=== PATIENT | female | born 1950 | race African-American/Black ===

== ENCOUNTER → 2019-09-10 11:11 | Outpatient (CLI) | payer OTHER, SELFPAY ==
--- NOTE | ~2019-09-10 | US_ITS ---
EXAMINATION: US thyroid EXAM DATE: 09/10/2019 11:30 INDICATION: Goiter. Left thyroid nodule biopsy 2011. TECHNIQUE: Multiple grayscale and Doppler images of the thyroid were obtained (by a technologist who performed the scan) and subsequently reviewed. Individual nodules and recommendations may be reporte d in accordance with TI-RADS system as designated by the 2017 ACR White Paper TI-RADS committee. Comp herbert is made to prior examination from 01/11/2012. FINDINGS: The right thyroid lobe measures 5.7 x 1.7 x 1.0 cm, the left measuring 6.6 x 3.3 x 2.5 cm, enlarged. There are multiple thyroid nodules identified, largest in the left thyroid lobe measuring 4.1 x 3.5 x 4.2 centimeters, solid (2 points), hypoechoic (2 points), wider than tall, smooth margin, without ec hogenic foci, category TR4 for this nodule. This nodule was previously biopsied in 2011, when it marquita sured 2.4 x 1.7 x 2.5 cm, has increased in size; please correlate with histology from that procedure. The other nodules are subcentimeter in size category TR 4 or lower. IMPRESSION: 1. Increase in size of a previously biopsied left thyroid lobe nodule; correlate with prior histolog y. 2. Multinodular goiter. Reviewed, dictated and finalized at location B. IMPRESSION: 1. Increase in size of a previously biopsied left thyroid lobe nodule; correla te with prior histology. 2. Multinodular goiter.
== END ==
PROVIDERS: PCP Student in an Organized Health Care Education/Training Program; Visit Provider Student in an Organized Health Care Education/Training Program
DX: E04.9 Nontoxic goiter, unspecified (principal)
CPT/HCPCS: 76536

== ENCOUNTER → 2019-10-15 11:06 | Outpatient (CLI) | payer OTHER, SELFPAY ==
--- NOTE | ~2019-10-15 | MM_ITS ---
EXAMINATION: MM screening [facility] w shaun HISTORY: Screening TECHNIQUE: Craniocaudal and mediolateral oblique 3-D tomosynthesis images were obtained and synthetic 2-D images were generated. CAD analysis was submitted and interpreted. COMPARISON: Comparison to multiple prior studies sequentially, with oldest reviewed study dated 04/25. BREAST PARENCHYMAL COMPOSITION: The breasts are heterogenously dense, which may obscure small masses. FINDINGS: There is no evidence of suspicious mass, calcification, or architectural distortion to sugg est malignancy in either breast. There has been no suspicious interval change. IMPRESSION: 1. No mammographic evidence of malignancy. 2. Recommend routine screening mammography in one year. BI-RADS Category 1: Negative Reviewed, dictated and finalized at location A.
== END ==
PROVIDERS: Visit Provider Obstetrics & Gynecology
DX: Z12.31 Encounter for screening mammogram for malignant neoplasm of breast (principal)
CPT/HCPCS: 77063; 77067

== ENCOUNTER → 2019-10-29 11:00 | Outpatient (CLI) | payer OTHER, SELFPAY ==
[2019-10-29 11:17] LABS: Estimated Glomerular Filt Rate 54
== END ==
PROVIDERS: PCP Student in an Organized Health Care Education/Training Program; Visit Provider Student in an Organized Health Care Education/Training Program
DX: R10.31 Right lower quadrant pain (principal); R19.7 Diarrhea, unspecified
CPT/HCPCS: 99199; 36415

== ENCOUNTER → 2019-11-02 09:51 | Outpatient (CLI) | payer OTHER, SELFPAY ==
--- NOTE | ~2019-11-02 | CT_ITS ---
EXAMINATION: CT abdomen pelvis wo con DATE: 11/02/2019 10:05 INDICATION: Right lower quadrant pain, diarrhea, history of irritable bowel syndrome TECHNIQUE: Computed tomography (CT) of the abdomen and pelvis was performed without intravenous contr ast. The dose-length product (DLP) was 535.91 mGy-cm. Automated exposure control and iterative recons truction technique were employed. COMPARISON: None FINDINGS: Minimal dependent atelectasis is present in the lung bases. The heart size is normal. The g allbladder is surgically absent. The liver, spleen, pancreas, and adrenal glands are normal. The kidn eys are unremarkable. There is calcified atherosclerosis of the aorta and many of the other arteries. The appendix is normal. No pathologically enlarged abdominal or pelvic lymph nodes are identified. T here is no free intraperitoneal gas or evidence of bowel obstruction. There is moderate lumbar spondy losis. IMPRESSION: 1. No CT correlate for the patient's symptoms. Reviewed, dictated and finalized at location A.
== END ==
PROVIDERS: PCP Student in an Organized Health Care Education/Training Program; Visit Provider Student in an Organized Health Care Education/Training Program
DX: E04.9 Nontoxic goiter, unspecified (principal)
CPT/HCPCS: 74176

== ENCOUNTER 2019-12-27 06:40 | Outpatient (NON) | payer OTHER, SELFPAY ==
[2019-12-27 17:47] LABS: SARS-CoV-2 RNA PCR Negative
== END 2019-12-27 06:41 ==
PROVIDERS: PCP Student in an Organized Health Care Education/Training Program; Visit Provider Student in an Organized Health Care Education/Training Program
DX: Z20.828 Contact with and (suspected) exposure to other viral communicable diseases (principal); J32.9 Chronic sinusitis, unspecified
CPT/HCPCS: 87635; C9803; U0003

== ENCOUNTER 2020-01-09 12:01 | Emergency (ER) | payer OTHER, SELFPAY ==
--- NOTE | ~2020-01-09 | XR_ITS ---
EXAMINATION: XR chest 1V portable DATE: 01/09/2020 13:22 INDICATION: Weakness. TECHNIQUE: A single frontal view of the chest was obtained. COMPARISON: Chest 2 views 09/08/2011, CT abdomen and pelvis 11/02/2019 FINDINGS: There is no pneumonia, pleural effusion, or pneumothorax. There is left ventricular enlarge ment of the heart. Surgical clips in the right upper quadrant are likely from cholecystectomy. IMPRESSION: 1. Left ventricular enlargement of the heart. Reviewed, dictated and finalized at location A.
[2020-01-09 12:04] VITALS: BP 132/76; PULSE 66; RESP 18; TEMP 36.9; O2SAT 100
[2020-01-09 12:29] LABS: Basophils Percent Auto 0.2 % (0.2-1.2); Eosinophils Percent Auto 0.5 % (0-4.4); Hematocrit 38.7 % (37.0-47.0); Immature Granulocyte Absolute 0.01 K/mm3 (0.00-0.031); Immature Granulocyte Percent A 0.2 % (0-0.5); Immature Platelet Fraction Pct 13.5 % (0.9-11.2); Lymphocytes Absolute Auto 1.14 K/mm3 (0.9-3.2); Lymphocytes Percent Auto 26.2 % (18.3-44.2); Mean Corpuscular HGB Conc 33.6 g/dl (32-36); Mean Corpuscular Hemoglobin 30.2 pg (26-34); Mean Corpuscular Volume 89.8 fl (80-100); Monocytes Absolute Auto 0.4 K/mm3 (0.1-0.6); Monocytes Percent Auto 8.7 % (2.6-8.5); Neutrophils Absolute Auto 2.8 K/mm3 (1.3-6.7); Neutrophils Percent Auto 64.2 % (45.5-73.1); Platelet Count Result 121 k/mm3 (150-375); Red Blood Count 4.31 M/mm3 (4.2-5.4); Red Cell Distribution Width 12.5 % (11.5-14.5); White Blood Count 4.4 K/mm3 (4.5-10.0)
[2020-01-09 12:39] LABS: Alanine Aminotransferase 83 U/L (4-35); Albumin Level 4.2 g/dL (3.5-5.1); Alkaline Phosphatase 74 U/L (38-126); Anion Gap 9 mmol/L (8-16); Aspartate Amino Transferase 63 U/L (14-36); Bilirubin,Total 0.5 mg/dL (0.2-1.3); Blood Urea Nitrogen 25 mg/dL (7-17); Calcium 9.2 mg/dL (8.4-10.2); Carbon Dioxide 25 mmol/L (22-30); Chloride 105 mmol/L (98-107); Estimated CRCL calculation 32 ml/min; Estimated Glomerular Filt Rate 45; Glucose 127 mg/dL (65-105); Lipase 173 U/L (23-300); Potassium 4.2 mmol/L (3.4-5.0); Sodium 139 mmol/L (137-145)
--- NOTE | 2020-01-09 12:43 | ED.GENADULT ---
HPI - General Adult General Chief complaint: Weakness Stated complaint: WEAKNESS/DIARRHEA Time Seen by Provider: 01/09/20 12:41 Source: patient and family Mode of arrival: ambulatory Limitations: no limitations History of Present Illness HPI narrative: Patient is 69 years old -[place] female presents to the ED with general weakness, vomiting once 2 days ago, diarrhea twice 2 days ago and twice today. Patient feels exhausted and tired. Patient started a new diet to lose weight 1 month ago. Her blood glucose sometimes goes down to 70. Patient also been complaining of frontal sinus infection, started on Z-Kyle recently without any improvement still having postnasal discharge. Patient denies any fever, chills, sore throat, shortness of breath, chest pain, back pain. Patient had negative COVID-19 test 2 weeks ago, was done at that time because of the sinus infection. History of diabetes, hypertension, hyperlipidemia, goiter. Patient does not smoke or drink. Related Data Allergies Allergy/AdvReac Type Severity Reaction Status Date / Time No Known Allergies Allergy Verified 11/20/18 10:05 Review of Systems Review of Systems: Narrative: CONSTITUTIONAL: Denies fever, chills, or sweats. EYES: Denies visual changes, redness, or discharge. ENT: Denies rhinorrhea, congestion, sore throat, or otalgia. CARDIOVASCULAR: Denies chest pain, palpitations, or edema. RESPIRATORY: Denies cough or dyspnea. GASTROINTESTINAL: Denies abdominal pain, nausea, vomiting, or diarrhea. GENITOURINARY: Denies dysuria or hematuria. SKIN: Denies rash or itching. MUSCULOSKELETAL: Denies back pain, joint pain, or myalgia. NEUROLOGIC: Denies headache, numbness, or weakness. PSYCHIATRIC: Denies anxiety or depression. [facility] Past Medical History Medical History (Updated 01/09/20 @ 14:23 by Kolby Corona MD) Diabetes mellitus, new onset Hyperlipidemia Hypertension Family History Family History (Updated 10/10/15 @ 23:19 by DOCTOR UNKNOWN) Mother Hypertension Family history of elevated blood lipids Cerebrovascular accident Family history of diabetes mellitus in first degree relative Family history of coronary artery disease Family history of lupus erythematosus Sibling Hypertension Diabetes mellitus Grandparent Diabetes mellitus Other Family history of malignant neoplasm of male breast Social History Social History Smoking status: Never smoker Second hand tobacco smoke exposure: No Alcohol intake: never Exam Narrative: Exam Narrative: General appearance: Well-developed, well-nourished Skin: Normal color Head: Normocephalic, nontraumatic Eyes: Clear conjunctiva ENT: Oropharynx normal, ears normal, nose normal Neck: Supple, nontender Chest and respiratory: Airway patent, no respiratory distress, no accessory muscle use Heart: Regular rate/rhythm Abdomen: Soft, nontender, no organomegaly, quiet bowel sounds Vascular: Normal peripheral pulses, normal capillary refill. 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
[2020-01-09 13:20] LABS: Add Urine Microscopic? YES; Appearance Urine Clear (Clear); Bacteria Urine Trace /hpf; Bilirubin Urine Negative (Negative); Blood Urine Negative (Negative); Color Urine Yellow (Yellow); Glucose Urine UA Negative (Negative); Hyaline Casts Urine 15-19 /lpf; Ketones Urine Negative (Negative); Leukocyte Esterase Ur Negative LEU/UL (Negative); Mucus Urine Rare /lpf; Nitrate Urine Negative (Negative); Protein Urine 2+ mg/dL (Negative); RBC Urine 0-2 /hpf (0-2); Specific Grav Ur 1.013 (1.001-1.035); Squamous Epithelial Cell Urine Occasional /hpf (Few); Transitional Epi Cells Urine Rare /hpf (None Seen); Urobilinogen Urine Negative mg/dL (<2.0); WBC Urine 0-3 /hpf
[2020-01-09] MEDS: ONDANSETRON INJ 4 MG/2 ML VIAL (13:59)
[2020-01-09] MEDS: SODIUM CHLORIDE 0.9% IV 1,000 ML 999 ML (13:59)
[2020-01-09 14:51] VITALS: BP 148/82; PULSE 80; RESP 16; O2SAT 100
== END 2020-01-09 14:52 | disposition home or self-care (01) ==
PROVIDERS: Emergency Provider Emergency Medicine; PCP Student in an Organized Health Care Education/Training Program
DX: K52.9 Noninfective gastroenteritis and colitis, unspecified (principal); E86.0 Dehydration; E11.9 Type 2 diabetes mellitus without complications; E78.5 Hyperlipidemia, unspecified; I10 Essential (primary) hypertension; E04.9 Nontoxic goiter, unspecified
CPT/HCPCS: 36415; 71045; 80053; 81001; 83690; 85025; 85055; 96374; 99284; J2405; J7030

== ENCOUNTER → 2020-02-15 13:12 | Outpatient (CLI) | payer OTHER, SELFPAY ==
--- NOTE | ~2020-02-15 | US_ITS ---
EXAMINATION: US soft tissue head and neck DATE: 02/15/2020 13:52 INDICATION: Localized swelling, mass or lump at the left neck TECHNIQUE: Multiple ultrasound images of the thyroid were obtained. COMPARISON: 09/10/2019 and 01/27/2012 FINDINGS: The right thyroid lobe measures 5.4 x 1.3 x 1.2 cm. The left thyroid lobe measures 3.5 x 2.7 x 2.8 c m. 7 mm wider than tall well-defined cystic TI RADS 1 nodule in the right thyroid. 10 mm wider than tall isoechoic solid nodule with ill-defined margins (TI-RADS 3, mildly suspicious , FNA if >=2.5 cm, annual followup is >1.5 cm). 3.5 cm solid nodule with smooth margins and with heterogeneous mildly d ecreased echogenicity with coarsened echotexture in the left thyroid lobe also TI-RADS 3. There is an additional 6 mm TI RADS 1 cystic nodule in the left thyroid. IMPRESSION: 1. Multinodular goiter including a 3.5 cm TI RADS 4 left thyroid nodule corresponding in location to the palpable abnormality. This nodule was previously biopsied on 01/27/2012 but has increased by appr oximately 50% in each dimension since the time of biopsy and repeat biopsy should be considered. Reviewed, dictated and finalized at location A. 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 Multinodular goiter including a 3.5 cm TI RADS 4 left thyroid nodule corresp onding in location to the palpable abnormality. This nodule was previously biop sied on 01/27/2012 but has increased by approximately 50% in each dimension sin ce the time of biopsy and repeat biopsy should be considered.
== END ==
PROVIDERS: PCP Student in an Organized Health Care Education/Training Program; Visit Provider Student in an Organized Health Care Education/Training Program
DX: E04.2 Nontoxic multinodular goiter (principal)
CPT/HCPCS: 76536

== ENCOUNTER 2020-06-20 21:25 | Emergency (ER) | payer OTHER, SELFPAY ==
--- NOTE | ~2020-06-20 | CT_ITS ---
EXAMINATION: CT abdomen pelvis w con INDICATION: Nausea and vomiting TECHNIQUE: Computed tomographic images of the abdomen and pelvis were obtained after the administrati on of 100 cc of Omnipaque 350 intravenous contrast. The dose-length product (DLP) was 378.57 mGy-cm. Automated exposure control and iterative reconstruction technique were employed. COMPARISON: 11/02/2019 FINDINGS: The heart size is normal. A stable 5 mm nodule right middle lobe likely reflects old granul omatous disease. There is a small sliding hiatal hernia. The gallbladder is surgically absent. There is mild enlargement of the common bile duct and central intrahepatic ducts which is likely due to pos t cholecystectomy state. The liver, spleen, pancreas, and adrenal glands are normal. The right kidney is unremarkable. There is a 9 mm soft tissue attenuation lesion of the left kidney upper pole. No pa thologically enlarged abdominal or pelvic lymph nodes are identified. There is no free intraperitonea l gas or evidence of bowel obstruction. There is a greater than normal number of fluid-filled, nondis tended small bowel loops. Liquid stool is present in the colon as far as the rectum. There is mild tiffani mbar spondylosis. There is mild wall thickening of the urinary bladder which could be due to incomple te distention. IMPRESSION: 1. CT findings suggestive of enterocolitis. 2. Indeterminate soft tissue attenuation lesion of the left kidney upper pole which could reflect pro teinaceous cyst or solid neoplasm. Follow-up by nonemergent MRI or CT without and with contrast is re commended. Reviewed, dictated and finalized at location A. IMPRESSION: 1. CT findings suggestive of enterocolitis. 2. Indeterminate soft tissue attenuation lesion of the left kidney upper pole w hich could reflect proteinaceous cyst or solid neoplasm. Follow-up by nonemerge nt MRI or CT without and with contrast is recommended.
[2020-06-20 21:40] VITALS: BP 155/89; PULSE 102; RESP 18; TEMP 36.4; O2SAT 98
[2020-06-20 22:00] VITALS: BP 174/101; PULSE 103
--- NOTE | 2020-06-20 22:02 | ED.NAVMDI ---
HPI - Nausea/Vomiting/Diarrhea General Chief complaint: Nausea/Vomiting/Diarrhea Stated complaint: vomiting Time Seen by Provider: 06/20/20 21:54 Source: RN notes reviewed History of Present Illness HPI Narrative: Patient presents to emergency department from home for nausea vomiting diarrhea. Patient states symptoms began approximately 4 PM today states numerous episodes of emesis and diarrhea. States associated with rates abdominal pain described as cramping. Denies any fevers or chills chest pain shortness of breath or any other symptoms. States she took no medication at home for the symptoms Related Data Home Medications Medication Instructions Recorded Confirmed carvedilol 3.125 mg tablet 3.125 mg PO Q12H 01/21/20 01/21/20 furosemide 20 mg tablet 20 mg PO QAM 01/21/20 01/21/20 insulin aspart U-100 100 unit/mL 5 unit SUBCUT TID 01/21/20 01/21/20 (3 mL) subcutaneous pen insulin glargine 100 unit/mL 40 unit SUBCUT DAILY 01/21/20 01/21/20 subcutaneous cartridge latanoprost 0.005 % eye drops 1 drp OPHTHALMIC (EYE) DAILY 01/21/20 01/21/20 lisinopril 40 mg tablet 40 mg PO DAILY 01/21/20 01/21/20 Allergies Allergy/AdvReac Type Severity Reaction Status Date / Time No Known Allergies Allergy Verified 03/17/20 09:51 Review of Systems Review of Systems: Narrative: Gen.: Denies fevers or chills ENT: Denies congestion Respiratory: Denies shortness of breath or cough CV: Denies chest pain or palpitations GI: See HPI denies burning, urgency, frequency or hematuria Musculoskeletal: Denies back pain or muscle pain Neuro: Denies numbness, tingling, weakness or focal weakness Skin: Denies rash Except as documented, all other systems reviewed and negative [facility] Past Medical History Medical History Diabetes mellitus, new onset History of degenerative joint disease History of fibromyalgia Hyperlipidemia Hypertension Surgical History Surgical History H/O dilation and curettage H/O myomectomy History of tubal ligation Family History Family History Mother Hypertension Family history of elevated blood lipids Cerebrovascular accident Family history of diabetes mellitus in first degree relative Family history of coronary artery disease Family history of lupus erythematosus Sibling Hypertension Diabetes mellitus Grandparent Diabetes mellitus Other Family history of malignant neoplasm of male breast Social History Social History Smoking status: Never smoker Second hand tobacco smoke exposure: No Alcohol intake: never Exam Narrative: Exam Narrative: APPEARANCE: No acute distress, nontoxic, resting in bed HEENT: Normocephalic, atraumatic, OMM RESPIRATORY: No respiratory distress, clear to auscultation bilaterally with no rhonchi wheezing or rales CARDIOVASCULAR: RRR s murmur ABDOMINAL: Soft nondistended tender palpation right upper quadrant right lower quadrant no tenderness left upper quadrant left lower quadrant no rebound or guarding MUSCULOSKELETAl: Moves all extremities. No clubbing, cyanosis or edema. NEURO: Awake and alert. Following commands, speech normal, no focal deficits SKIN:: Warm, dry. Normal Color PSYCHIATRIC: Normal affect/mood Course Course Emergency Course: Patient states she is feeling much better at this time. Able to drink in the emergency department with no emesis Called and discussed with Heydi Mariee APRN for patient's PCP discussed CT results and need for follow-up imaging of kidney Patient states that they are feeling much better at this time. States abdominal pain has resolved. Repeat abdominal exam shows the patient's abdomen to be soft and nontender. Discussed with patient results of workup and diagnosis. Discussed need for follow-up with prim
[2020-06-20 22:03] LABS: Basophils Percent Auto 0.4 % (0.2-1.2); Eosinophils Absolute Auto 0.1 K/mm3 (0-0.3); Eosinophils Percent Auto 0.6 % (0-4.4); Hematocrit 44.1 % (37.0-47.0); Hemoglobin 14.8 g/dL (12.0-15.0); Immature Granulocyte Absolute 0.03 K/mm3 (0.00-0.031); Immature Granulocyte Percent A 0.3 % (0-0.5); Lymphocytes Absolute Auto 0.54 K/mm3 (0.9-3.2); Lymphocytes Percent Auto 5.5 % (18.3-44.2); Mean Corpuscular HGB Conc 33.6 g/dl (32-36); Mean Corpuscular Hemoglobin 29.5 pg (26-34); Mean Corpuscular Volume 87.8 fl (80-100); Mean Platelet Volume 12.7 fl (7.4-10.4); Monocytes Absolute Auto 0.3 K/mm3 (0.1-0.6); Monocytes Percent Auto 3.3 % (2.6-8.5); Neutrophils Absolute Auto 8.8 K/mm3 (1.3-6.7); Neutrophils Percent Auto 89.9 % (45.5-73.1); Platelet Count Result 228 k/mm3 (150-375); Red Blood Count 5.02 M/mm3 (4.2-5.4); Red Cell Distribution Width 12.9 % (11.5-14.5); White Blood Count 9.8 K/mm3 (4.5-10.0)
[2020-06-20 22:05] VITALS: BP 174/115; PULSE 103
[2020-06-20 22:10] VITALS: BP 160/97; PULSE 101
[2020-06-20 22:13] LABS: Alanine Aminotransferase 72 U/L (4-35); Albumin Level 4.8 g/dL (3.5-5.1); Alkaline Phosphatase 106 U/L (38-126); Anion Gap 9 mmol/L (8-16); Aspartate Amino Transferase 41 U/L (14-36); Bilirubin,Total 0.4 mg/dL (0.2-1.3); Blood Urea Nitrogen 25 mg/dL (7-17); Calcium 9.8 mg/dL (8.4-10.2); Carbon Dioxide 27 mmol/L (22-30); Chloride 105 mmol/L (98-107); Estimated CRCL calculation 37 ml/min; Estimated Glomerular Filt Rate 54; Glucose 160 mg/dL (65-105); Lipase 87 U/L (23-300); Potassium 4.2 mmol/L (3.4-5.0); Sodium 141 mmol/L (137-145)
[2020-06-20] MEDS: SODIUM CHLORIDE 0.9% IV 1,000 ML 999 ML IV CONT (22:30)
[2020-06-20] MEDS: ONDANSETRON INJ 4 MG/2 ML VIAL IV PUSH (22:30)
[2020-06-20 22:46] LABS: Add Urine Microscopic? YES; Appearance Urine Cloudy (Clear); Bilirubin Urine Negative (Negative); Blood Urine Negative (Negative); Color Urine Yellow (Yellow); Glucose Urine UA Negative (Negative); Ketones Urine Trace mg/dL (Negative); Leukocyte Esterase Ur Negative LEU/UL (Negative); Mucus Urine Rare /lpf; Nitrate Urine Negative (Negative); Protein Urine 3+ mg/dL (Negative); RBC Urine 0-2 /hpf (0-2); Specific Grav Ur 1.022 (1.001-1.035); Squamous Epithelial Cell Urine Rare /hpf (Few); Urobilinogen Urine Negative mg/dL (<2.0); WBC Urine 0-3 /hpf
[2020-06-21 00:14] VITALS: BP 160/90; PULSE 100; RESP 16; O2SAT 98
[2020-06-21] MEDS: metroNIDAZOLE 250 MG TABLET 500 MG PO (01:13)
[2020-06-21 01:14] VITALS: BP 184/108; PULSE 60; RESP 16; O2SAT 100
== END 2020-06-21 01:15 | disposition home or self-care (01) ==
PROVIDERS: Emergency Provider Emergency Medicine; PCP Student in an Organized Health Care Education/Training Program
DX: K52.9 Noninfective gastroenteritis and colitis, unspecified (principal); E11.42 Type 2 diabetes mellitus with diabetic polyneuropathy; E78.5 Hyperlipidemia, unspecified; I10 Essential (primary) hypertension; M79.7 Fibromyalgia; Z79.4 Long term (current) use of insulin
CPT/HCPCS: 36415; 74177; 80053; 81001; 83690; 85025; 96365; 96375; 99284; A9270; J0131; J2405; J7030; Q9967

== ENCOUNTER → 2020-10-25 01:52 | Outpatient (CLI) | payer OTHER, SELFPAY ==
[2020-10-25 17:52] LABS: SARS-CoV-2 RNA PCR Negative
== END ==
PROVIDERS: PCP Student in an Organized Health Care Education/Training Program; Visit Provider Student in an Organized Health Care Education/Training Program
DX: R68.89 Other general symptoms and signs (principal); Z20.822 Contact with and (suspected) exposure to COVID-19
CPT/HCPCS: C9803; U0003; U0005

== ENCOUNTER → 2020-11-03 14:51 | Outpatient (CLI) | payer OTHER, SELFPAY ==
--- NOTE | ~2020-11-03 | MM_ITS ---
EXAMINATION: [place] [facility] [place] HISTORY: Screening mammogram TECHNIQUE: Craniocaudal and mediolateral oblique 3-D tomosynthesis images were obtained and synthetic 2-D images were generated. CAD analysis was submitted and interpreted. COMPARISON: 10/15/2019, 09/26/2018, 08/06/2017 BREAST PARENCHYMAL COMPOSITION: The breasts are extremely dense, which lowers the sensitivity of mamm ography. FINDINGS: There is no evidence of suspicious mass, calcification, or architectural distortion to sugg est malignancy in either breast. There has been no suspicious interval change. IMPRESSION: 1. No mammographic evidence of malignancy. 2. Recommend routine screening mammography in one year. BI-RADS Category 1: Negative Reviewed, dictated and finalized at location A.
== END ==
PROVIDERS: Visit Provider Obstetrics & Gynecology
DX: Z12.31 Encounter for screening mammogram for malignant neoplasm of breast (principal)
CPT/HCPCS: 77063; 77067

== ENCOUNTER → 2020-12-09 05:20 | Outpatient (CLI) | payer OTHER, SELFPAY ==
[2020-12-10 01:26] LABS: SARS-CoV-2 RNA PCR Negative
== END ==
PROVIDERS: PCP Student in an Organized Health Care Education/Training Program; Visit Provider Student in an Organized Health Care Education/Training Program
DX: Z20.822 Contact with and (suspected) exposure to COVID-19 (principal); J34.89 Other specified disorders of nose and nasal sinuses
CPT/HCPCS: C9803; U0003; U0005

== ENCOUNTER → 2021-02-19 13:55 | Outpatient (CLI) | payer OTHER, SELFPAY ==
--- NOTE | ~2021-02-19 | US_ITS ---
EXAMINATION: US pelvic complete w TV DATE: 02/19/2021 14:30 INDICATION: Pelvic and perineal pain. TECHNIQUE: Multiple transabdominal and transvaginal sonographic images of the pelvis were obtained. COMPARISON: CT abdomen and pelvis 06/20/2020 FINDINGS: TRANSABDOMINAL ULTRASOUND: The uterus measures 8.5 x 3.4 x 4.3 cm. There is no free fluid in the pelvis. TRANSVAGINAL ULTRASOUND: The endometrial complex measures 1 mm in thickness. There are multiple uterine fibroids measuring up to 2.3 cm. The ovaries are not visualized. IMPRESSION: 1. Uterine fibroids. 2. Ovaries not visualized. Reviewed, dictated and finalized at location A. 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
== END ==
PROVIDERS: PCP Student in an Organized Health Care Education/Training Program; Visit Provider Obstetrics & Gynecology
DX: R10.2 Pelvic and perineal pain (principal); D25.9 Leiomyoma of uterus, unspecified
CPT/HCPCS: 76830; 76856

== ENCOUNTER → 2021-03-20 04:03 | Outpatient (CLI) | payer OTHER, SELFPAY ==
[2021-03-21 22:39] LABS: SARS-CoV-2 RNA PCR Negative
== END ==
PROVIDERS: PCP Student in an Organized Health Care Education/Training Program; Visit Provider Student in an Organized Health Care Education/Training Program
DX: R09.89 Other specified symptoms and signs involving the circulatory and respiratory systems (principal); Z20.822 Contact with and (suspected) exposure to COVID-19
CPT/HCPCS: C9803; U0003; U0005

== ENCOUNTER → 2021-04-06 02:08 | Outpatient (CLI) | payer OTHER, SELFPAY ==
[2021-04-06 19:02] LABS: SARS-CoV-2 RNA PCR Negative
== END ==
PROVIDERS: PCP Student in an Organized Health Care Education/Training Program; Visit Provider Student in an Organized Health Care Education/Training Program
DX: R53.1 Weakness (principal); R19.7 Diarrhea, unspecified; Z20.822 Contact with and (suspected) exposure to COVID-19
CPT/HCPCS: C9803; U0003; U0005

== ENCOUNTER → 2021-06-05 10:56 | Outpatient (CLI) | payer OTHER, SELFPAY ==
--- NOTE | ~2021-06-05 | DEXA_ITS ---
Bone Density Report Name: ALEXANDRA STEVENS Age: 71 Sex: Female Ethnicity: Black Date of : 1950 Indication: postmenopausal osteoporosis; rheumatoid arthritis; Referring Provider: MARCIE DUARTE Study: Bone densitometry was performed. Exam Date: June 05, 2021 Accession number: [id number] Bone Density: Region BMD T-score Z-score Classification AP Spine (L1-L4) 0.771 -2.5 -1.1 Osteoporosis Femoral Neck (Left) 0.568 -2.5 -1.3 Osteoporosis Total Hip (Left) 0.621 -2.6 -1.5 Osteoporosis Femoral Neck (Right) 0.590 -2.3 -1.1 Osteopenia Total Hip (Right) 0.607 -2.7 -1.6 Osteoporosis Total Hip Mean 0.614 -2.7 -1.6 Osteoporosis World Health Organization criteria for BMD impression classify patients as: Normal (T-score at or above -1.0), Osteopenia (T-score between -1.0 and -2.5), or Osteoporosis (T-score at or below -2.5). 10-year Fracture Risk: FRAX not reported because: Some T-score for Spine Total or Hip Total or Femoral Neck at or below -2.5 Previous Exams: Region Exam Age BMD T-score BMD Change BMD Change Date g/cm2 vs Baseline vs Previous AP Spine(L1-L4) 06/05/2021 71 0.771 -2.5 -0.087* -0.062* 01/31/2015 64 0.834 -1.9 -0.025* -0.042* 11/07/2009 59 0.876 -1.6 0.017 0.017 05/26/2007 57 0.859 -1.7 Total Hip(Left) 06/05/2021 71 0.621 -2.6 -0.022 -0.036* 01/31/2015 64 0.657 -2.3 0.014 -0.046* 11/07/2009 59 0.703 -2.0 0.060* 0.060* 05/26/2007 57 0.644 -2.4 Total Hip(Right) 06/05/2021 71 0.607 -2.7 -0.040* -0.029* 01/31/2015 64 0.636 -2.5 -0.010 -0.051* 11/07/2009 59 0.687 -2.1 0.041* 0.041* 05/26/2007 57 0.646 -2.4 *Denotes significance at 95% confidence level, LSC for AP Spine = 0.022 g/cm2, LSC for Total Hip = 0.027 g/cm2 Clinical Information Provided by Patient: Has rheumatoid arthritis Has used the following medications: Vitamin D Patient maximum height was 66 Menopause Age: 51 No regular weight bearing exercise Onset of menses at age 14 Number of children 3 Impression: The patient has osteoporosis, based on the Right Total Hip T-score. The BMD for the AP Spine(L1-L4) decreased, changing by -0.062 since the last DXA exam. The BMD for the Total Hip(Left) decreased, changing by -0.036 since the last DXA exam. The BMD for the Total Hip(Right) decr
== END ==
PROVIDERS: PCP Student in an Organized Health Care Education/Training Program; Visit Provider Obstetrics & Gynecology
DX: Z78.0 Asymptomatic menopausal state (principal); M81.0 Age-related osteoporosis without current pathological fracture; M85.89 Other specified disorders of bone density and structure, multiple sites
CPT/HCPCS: 77080

== ENCOUNTER → 2022-01-05 12:26 | Outpatient (CLI) | payer OTHER, SELFPAY ==
--- NOTE | ~2022-01-05 | MM_ITS ---
EXAMINATION: MM screening [facility] BI w shaun HISTORY: Screening mammogram TECHNIQUE: Craniocaudal and mediolateral oblique 3-D tomosynthesis images were obtained and synthetic 2-D images were generated. CAD analysis was submitted and interpreted. COMPARISON: 11/03/2020, 10/15/2019, 09/26/2018 BREAST PARENCHYMAL COMPOSITION: The breasts are heterogeneously dense, which may obscure small masses . FINDINGS: No suspicious mass, calcification, or architectural distortion are identified in either jose raul ast to suggest malignancy. There has been no suspicious interval change. IMPRESSION: 1. No mammographic evidence of malignancy. 2. Recommend routine screening mammography in one year. BI-RADS Category 1: Negative Reviewed, dictated and finalized at location A.
== END ==
PROVIDERS: PCP Student in an Organized Health Care Education/Training Program; Visit Provider Obstetrics & Gynecology
DX: Z12.31 Encounter for screening mammogram for malignant neoplasm of breast (principal)
CPT/HCPCS: 77063; 77067

== ENCOUNTER → 2023-04-11 12:45 | Outpatient (CLI) | payer OTHER, SELFPAY ==
--- NOTE | ~2023-04-11 | US_ITS ---
EXAMINATION: US thyroid DATE: 04/11/2023 13:09 INDICATION: Thyroid nodule. TECHNIQUE: Multiple ultrasound images of the thyroid were obtained. COMPARISON: Ultrasound 02/15/2020, 09/10/19, 01/27/12 FINDINGS: The right thyroid lobe measures 4.7 x 1.5 x 1.4 cm. The left thyroid lobe measures 6.8 x 3.8 x 2.3 c m. In the left thyroid lobe, there is a 4.6 cm solid, hypoechoic, wider than tall nodule with ill-de fined margin without echogenic foci (TI-RADS TR4) that measured 4.1 cm on 09/10/19 and 2.5 cm on 01/26. Biopsy was benign on 01/27/12. In the left thyroid lobe, there is a 5 mm solid, hypoechoic, wide r than tall nodule with smooth margin without echogenic foci (TR4). In the right thyroid lobe, there is a 12 mm solid, hypoechoic, wider than tall nodule with lobulated margin without echogenic foci (TR 4), stable from 09/10/19. In the right thyroid lobe, there is a 7 mm solid, hypoechoic, wider than jose l nodule with lobulated margin without echogenic foci (TR4). IMPRESSION: 1. Multinodular goiter. Consider ultrasound-guided fine-needle aspiration of the 4.6 cm left thyroid nodule. Reviewed, dictated and finalized at location A. PER IMPRESSION: 1. Multinodular goiter. Consider ultrasound-guided fine-needle aspiration of th e 4.6 cm left thyroid nodule.
== END ==
PROVIDERS: PCP Student in an Organized Health Care Education/Training Program; Visit Provider Student in an Organized Health Care Education/Training Program
DX: E04.2 Nontoxic multinodular goiter (principal)
CPT/HCPCS: 76536

== ENCOUNTER → 2023-04-11 12:50 | Outpatient (CLI) | payer OTHER, SELFPAY ==
--- NOTE | ~2023-04-11 | MM_ITS ---
EXAMINATION: MM screening [facility] w shaun HISTORY: Screening TECHNIQUE: Craniocaudal and mediolateral oblique 3-D tomosynthesis images were obtained and synthetic 2-D images were generated. CAD analysis was submitted and interpreted. COMPARISON: Comparison to multiple prior studies sequentially, with oldest reviewed study dated 08/06. BREAST PARENCHYMAL COMPOSITION: The breasts are heterogeneously dense, which may obscure small masses . FINDINGS: There is no evidence of suspicious mass, calcification, or architectural distortion to sugg est malignancy in either breast. There has been no suspicious interval change. IMPRESSION: 1. No mammographic evidence of malignancy. 2. Recommend routine screening mammography in one year. BI-RADS Category 1: Negative Reviewed, dictated and finalized at location A. 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
== END ==
PROVIDERS: PCP Student in an Organized Health Care Education/Training Program; Visit Provider Obstetrics & Gynecology
DX: Z12.31 Encounter for screening mammogram for malignant neoplasm of breast (principal)
CPT/HCPCS: 77063; 77067

== ENCOUNTER 2023-04-28 21:52 | Emergency (ER) | payer OTHER, SELFPAY ==
[2023-04-28] VITALS (8 sets, daily range): BP systolic 184–205; BP diastolic 78–98; PULSE 70–73; RESP 13–17; TEMP 36.7; O2SAT 97–100
--- NOTE | ~2023-04-28 | XR_ITS ---
EXAMINATION: XR chest 2V DATE: 04/28/2023 22:46 INDICATION: Hypertension TECHNIQUE: PA and lateral views of the chest were obtained. COMPARISON: Chest radiograph dated 01/09/2020 FINDINGS: Mild streaky atelectasis at the bilateral costophrenic angles. No other airspace opacities, pulmonary edema, pleural effusion or pneumothorax. The cardiomediastinal silhouette is normal. Three lead pace maker/AICD seen with leads projecting over the expected locations of the right atrial appendage, apex of the right ventricle and overlying the left ventricle likely having traversed the coronary sinus. Cholecystectomy clips in right upper quadrant. IMPRESSION: 1. Mild bibasilar atelectasis at the costophrenic angles. No other acute cardiopulmonary disease. Reviewed, dictated and finalized at location A. 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 Mild bibasilar atelectasis at the costophrenic angles. No other acute cardio pulmonary disease.
--- NOTE | 2023-04-28 22:05 | ECG_ITS ---
Measurements Intervals [place] Rate: 70 P: 241 [place]: 155 QRS: 148 QRSD: 152 T: -74 QT: 457 QTc: 493 Interpretive Statements ELECTRONIC ATRIAL PACEMAKER ELECTRONIC VENTRICULAR PACEMAKER ATYPICAL ECG NO PREVIOUS ECG AVAILABLE FOR COMPARISON Electronically Signed On 04-29-2023 15:06:33 KETTLE FRY COOK OPERATOR by Yogesh Alston M.D.
[2023-04-28 23:03] LABS: Basophils Absolute Auto 0.1 K/mm3 (0.0-0.1); Basophils Percent Auto 0.9 % (0.2-1.2); Eosinophils Absolute Auto 0.3 K/mm3 (0-0.3); Eosinophils Percent Auto 3.2 % (0-4.4); Hematocrit 42.9 % (37.0-47.0); Hemoglobin 13.6 g/dL (12.0-15.0); Immature Granulocyte Absolute 0.02 K/mm3 (0.00-0.031); Immature Granulocyte Percent A 0.2 % (0-0.5); Immature Platelet Fraction Pct 21.8 % (0.9-11.2); Lymphocytes Absolute Auto 1.97 K/mm3 (0.9-3.2); Lymphocytes Percent Auto 24.3 % (18.3-44.2); Mean Corpuscular HGB Conc 31.7 g/dl (32-36); Mean Corpuscular Hemoglobin 28.9 pg (26-34); Mean Corpuscular Volume 91.1 fl (80-100); Mean Platelet Volume 13.7 fl (7.4-10.4); Monocytes Absolute Auto 0.6 K/mm3 (0.1-0.6); Monocytes Percent Auto 7.9 % (2.6-8.5); Neutrophils Absolute Auto 5.2 K/mm3 (1.3-6.7); Neutrophils Percent Auto 63.5 % (45.5-73.1); Platelet Count Result 123 k/mm3 (150-375); Red Blood Count 4.71 M/mm3 (4.2-5.4); Red Cell Distribution Width 14.1 % (11.5-14.5); White Blood Count 8.1 K/mm3 (4.5-10.0)
[2023-04-28 23:13] LABS: Prothrombin Time 13.5 Seconds (11.1-14.7)
[2023-04-28 23:14] LABS: Partial Thromboplastin Time 30.4 SECONDS (22.3-36.8)
[2023-04-28 23:17] LABS: Alanine Aminotransferase 48 U/L (6-35); Albumin Level 4.5 g/dL (3.5-5.1); Alkaline Phosphatase 99 U/L (38-126); Anion Gap 8 mmol/L (8-16); Aspartate Amino Transferase 47 U/L (14-36); Bilirubin,Total 0.5 mg/dL (0.2-1.3); Blood Urea Nitrogen 35 mg/dL (7-17); Calcium 9.5 mg/dL (8.4-10.2); Carbon Dioxide 28 mmol/L (22-30); Chloride 103 mmol/L (98-107); Estimated CRCL calculation 30 ml/min; Estimated Glomerular Filt Rate 45; Glucose 139 mg/dL (65-110); Lipase 232 U/L (23-300); Sodium 139 mmol/L (137-145)
[2023-04-28 23:28] LABS: Troponin I < 0.012 ng/mL (0.000-0.034)
[2023-04-28 23:38] LABS: Influenza A QL RT-PCR Negative (Negative); Influenza B QL RT-PCR Negative (Negative); RSV RNA, RT-PCR Negative (Negative); SARS-CoV-2 RNA PCR Negative (Negative)
--- NOTE | 2023-04-29 00:15 | ED.GENADULT ---
HPI - General Adult General Chief complaint: Unspecified Stated complaint: blood pressure problems, headache and bodyaches Time Seen by Provider: 04/28/23 23:41 Source: patient Mode of arrival: ambulatory Limitations: no limitations History of Present Illness HPI narrative: This is a 73-year-old female who presents to the ED for chief complaint of elevated blood pressures over the past couple of weeks and worse today. Reports she has been seen by her clinical account specialist recently and was told to double her dose of her beta-yesica today. She noticed a where her blood pressure was II 15/120 so she decided to come to the ER. Denies chest pain, shortness of breath, vision changes. Does endorse a little bit of headache over the last couple of weeks but also states that she has had increased sinus pressure and congestion as well. Denies worse headache of life. Denies fevers, chills, nausea, vomiting, numbness, weakness. Related Data Home Medications Medication Instructions Recorded Confirmed carvedilol 3.125 mg tablet 3.125 mg PO Q12H 01/21/20 07/29/22 furosemide 20 mg tablet 20 mg PO QAM 01/21/20 07/29/22 insulin aspart U-100 100 unit/mL 5 unit subcut TID 01/21/20 07/29/22 (3 mL) subcutaneous pen (Novolog FlexPen U-100 Insulin aspart) insulin glargine 100 unit/mL 40 unit subcut DAILY 01/21/20 07/29/22 subcutaneous cartridge latanoprost 0.005 % eye drops 1 drp ophthalmic (eye) DAILY 01/21/20 07/29/22 (Xalatan) alclometasone 0.05 % topical cream 1 applic topical BID 07/29/22 07/29/22 ascorbic acid (vitamin C) 500 mg mg PO 07/29/22 07/29/22 capsule aspirin 81 mg tablet,delayed 81 mg PO DAILY 07/29/22 07/29/22 release atorvastatin 80 mg tablet 80 mg PO DAILY 07/29/22 07/29/22 bacitracin 500 unit/gram topical 1 applic topical TID 07/29/22 07/29/22 ointment choline [id number] tablet PO 07/29/22 07/29/22 tablet cinnamon bark 500 mg capsule 500 mg PO DAILY 07/29/22 07/29/22 (Cinnamon) clonidine HCl 0.1 mg tablet 0.1 mg PO DAILY 07/29/22 07/29/22 clopidogrel 75 mg tablet 75 mg PO DAILY 07/29/22 07/29/22 evening primrose oil 500 mg capsule 500 mg PO 4-6XD PRN 07/29/22 07/29/22 famotidine 20 mg tablet 20 mg PO DAILY 07/29/22 07/29/22 folic acid 400 mcg tablet 0.4 mg PO DAILY 07/29/22 07/29/22 loratadine 10 mg tablet 10 mg PO DAILY 07/29/22 07/29/22 losartan 100 mg tablet 100 mg PO DAILY 07/29/22 07/29/22 mecobalamin (vitamin B12) 500 mcg mcg PO 07/29/22 07/29/22 chewable tablet metformin 500 mg tablet 500 mg PO DAILY 07/29/22 07/29/22 multivitamin 1 tablet PO DAILY 07/29/22 07/29/22 omega 6-khf-xog-fish oil 300 1 cap PO DAILY 07/29/22 07/29/22 mg-1,000 mg capsule (Fish Oil) Allergies Allergy/AdvReac Type Severity Reaction Status Date / Time amoxicillin Allergy Diarrhea Verified 04/28/23 22:01 Review of Systems Review of Systems: All systems as dictated in [facility] Past Medical History Medical History Diabetes mellitus Glaucoma History of degenerative joint disease History of fibromyalgia Hyperlipidemia Hypertension Myalgia Myositis Rheumatoid arthritis Sciatica Vaginal delivery x1 Surgical History Surgical History H/O dilation and curettage 1989 H/O myomectomy History of cholecystectomy 1990, laparoscopic History of heart surgery 07/27/17, 3 stents placed History of tubal ligation Previous section x2 Family History Family History Mother Hypertension Family history of elevated blood lipids Cerebrovascular accident Family history of diabetes mellitus in first degree relative Family history of coronary artery disease Family history of lupus erythematosus Diabetes mellitus Sibling Hypertension brother and sister Diabetes mellitus brother and sister Grandparent Diabetes mode
[2023-04-29 00:16] VITALS: BP 187/83; PULSE 70; RESP 16; O2SAT 98
[2023-04-29] MEDS: ACETAMINOPHEN 500 MG TABLET 1000 MG PO (00:23)
== END 2023-04-29 00:29 | disposition home or self-care (01) ==
PROVIDERS: Student in an Organized Health Care Education/Training Program; Emergency Provider Physician Assistant; PCP Student in an Organized Health Care Education/Training Program
DX: I10 Essential (primary) hypertension (principal); Z20.822 Contact with and (suspected) exposure to COVID-19; E11.39 Type 2 diabetes mellitus with other diabetic ophthalmic complication; H42 Glaucoma in diseases classified elsewhere; E78.5 Hyperlipidemia, unspecified; M06.9 Rheumatoid arthritis, unspecified; M79.7 Fibromyalgia; Z95.0 Presence of cardiac pacemaker; Z95.5 Presence of coronary angioplasty implant and graft; Z90.49 Acquired absence of other specified parts of digestive tract; Z79.82 Long term (current) use of aspirin; Z79.4 Long term (current) use of insulin; Z79.84 Long term (current) use of oral hypoglycemic drugs
CPT/HCPCS: 36415; 71046; 80053; 83690; 84484; 85025; 85055; 85610; 85730; 87637; 93005; 99284; A9270

== ENCOUNTER 2023-05-24 15:24 | Outpatient (CLI) | payer OTHER, SELFPAY ==
--- NOTE | ~2023-05-24 | US_ITS ---
EXAMINATION: US pelvic complete DATE: 05/24/2023 16:01 INDICATION: R10.2 - Pelvic and perineal pain TECHNIQUE: Multiple transabdominal sonographic images of the pelvis were obtained. COMPARISON: 02/19/2021 FINDINGS: Uterus: 9.6 x 2.4 x 5.1 cm. 2.0 cm focus in the uterine fundus which appears to indent/displace the e ndometrium. Endometrial complex measures 2 mm. Right Ovary: 2.2 x 0.9 x 2.1 cm. Vascular flow is present. Left Ovary: 2.1 x 1.3 x 1.7 cm. Vascular flow is present. There is no free fluid in the pelvis. IMPRESSION: 2 cm submucosal fibroid. Otherwise unremarkable pelvic ultrasound findings Reviewed, dictated and finalized at location K.
== END 2023-05-24 15:25 | disposition home or self-care (01) ==
PROVIDERS: PCP Student in an Organized Health Care Education/Training Program; Visit Provider Nurse Practitioner Family
DX: D25.0 Submucous leiomyoma of uterus (principal)
CPT/HCPCS: 76856

== ENCOUNTER 2024-04-13 12:47 | Outpatient (CLI) | payer MEDICARE, SELFPAY ==
--- NOTE | ~2024-04-13 | MM_ITS ---
EXAMINATION: MM screening ignacio BI w shaun HISTORY: Screening TECHNIQUE: Craniocaudal and mediolateral oblique 3-D tomosynthesis images were obtained and synthetic 2-D images were generated. CAD analysis was submitted and interpreted. COMPARISON: Comparison to multiple prior studies sequentially, with oldest reviewed study dated 09/26. BREAST PARENCHYMAL COMPOSITION: Dense: The breasts are heterogeneously dense, which may obscure small masses FINDINGS: There is no evidence of suspicious mass, calcification, or architectural distortion to sugg est malignancy in either breast. There has been no suspicious interval change. IMPRESSION: 1. No mammographic evidence of malignancy. 2. Recommend routine screening mammography in one year. BI-RADS Category 1: Negative Reviewed, dictated and finalized at location A. NISTRATOR
== END 2024-04-13 12:48 | disposition home or self-care (01) ==
PROVIDERS: PCP Obstetrics & Gynecology; Visit Provider Student in an Organized Health Care Education/Training Program
DX: Z12.31 Encounter for screening mammogram for malignant neoplasm of breast (principal)
CPT/HCPCS: 77063; 77067

== ENCOUNTER 2024-08-29 12:45 | Outpatient (CLI) | payer MEDICARE, SELFPAY ==
--- NOTE | ~2024-08-29 | US_ITS ---
Renal-Bladder ultrasound Clinical History: Chronic kidney disease Technique: Real-time sonographic imaging of the kidneys and urinary bladder was performed. Findings: The right kidney measures 9.5 cm in length and the left kidney measures 8.2 cm. There is no hydronephrosis or renal calculus identified. Renal cortical echogenicity is within normal limits. No renal mass lesion is identified. The urinary bladder is moderately distended at the time of this exam. No intraluminal echoes are iden tified. No abnormal wall thickening is seen. Impression: Unremarkable ultrasound of the kidneys and urinary bladder. Reviewed, dictated and finalized at location . Impression: Unremarkable ultrasound of the kidneys and urinary bladder.
== END 2024-08-29 12:46 | disposition home or self-care (01) ==
LOC: MICIMG 12:46
PROVIDERS: PCP Student in an Organized Health Care Education/Training Program; Visit Provider Internal Medicine Nephrology
DX: N18.31 Chronic kidney disease, stage 3a (principal)
CPT/HCPCS: 76775

== ENCOUNTER 2025-01-03 12:28 | Outpatient (CLI) | payer MEDICARE, SELFPAY ==
--- NOTE | ~2025-01-03 | DEXA_ITS ---
Bone Density Report Name: ALEXANDRA STEVENS Age: 74 Sex: Female Ethnicity: Black Date of : 1950 Indication: postmenopausal osteoporosis; height loss; inflammatory bowel disease; rheumatoid arthritis; Referring Provider: MARCIE DUARTE Study: Bone densitometry was performed. Exam Date: January 03, 2025 Accession number: [id number] Bone Density: Region BMD T-score Z-score Classification AP Spine(L1-L4) 0.813 -2.1 -0.5 Osteopenia Femoral Neck (Left) 0.579 -2.4 -1.1 Osteopenia Total Hip (Left) 0.685 -2.1 -1.0 Osteopenia Femoral Neck (Right) 0.533 -2.8 -1.4 Osteoporosis Total Hip (Right) 0.605 -2.8 -1.5 Osteoporosis Total Hip Mean 0.645 -2.5 -1.3 Osteopenia World Health Organization criteria for BMD impression classify patients as: Normal (T-score at or above -1.0), Osteopenia (T-score between -1.0 and -2.5), or Osteoporosis (T-score at or below -2.5). 10-year Fracture Risk: FRAX not reported because: Some T-score for Spine Total or Hip Total or Femoral Neck at or below -2.5 Previous Exams: -- Region Exam Age BMD T-score BMD Change BMD Change Date g/cm2 vs Baseline vs Previous -- AP Spine (L1-L4) 01/03/2025 74 0.813 -2.1 -5.4%# 5.4%# 06/05/2021 71 0.771 -2.5 -10.2%* -7.5%* 01/31/2015 64 0.834 -1.9 -2.9%* -4.8%* 11/07/2009 59 0.876 -1.6 2.0% 2.0% 05/26/2007 57 0.859 -1.7 Total Hip(Left) 01/03/2025 74 0.685 -2.1 6.4%# 10.2%# 06/05/2021 71 0.621 -2.6 -3.5% -5.5%* 01/31/2015 64 0.657 -2.3 2.1% -6.5%* 11/07/2009 59 0.703 -2.0 9.3%* 9.3%* 05/26/2007 57 0.644 -2.4 Total Hip(Right) 01/03/2025 74 0.605 -2.8 -6.3%# -0.2%# 06/05/2021 71 0.607 -2.7 -6.1%* -4.6%* 01/31/2015 64 0.636 -2.5 -1.6% -7.5%* 11/07/2009 59 0.687 -2.1 6.4%* 6.4%* 05/26/2007 57 0.646 -2.4 -- *Denotes significance at 95% confidence level, LSC for AP Spine = 0.022 g/cm2, LSC for Total Hip = 0.027 g/cm2 # Denotes dissimilar scan types or analysis methods Clinical Information Provided by Patient: Has rheumatoid arthritis Has used the following medications: Vitamin D Has the following medical conditions: Inflammatory bowel diseases Patient maximum height was 66 Menopause Age: 51 No regular weight bearing exercise Onset of menses at age 14 Number of children 3 Impression: The patient has osteoporosis, based on the Right Total Hip T-score. Unable to evaluate interval change due to the use of different scan modes. Discussion: INCREASED RISK OF FRACTURE. BONE DENSITY IS UNDESIRABLY LOW AT ONE OR MORE SKELETAL SITES, CONSISTENT WITH POSTMENOPAUSAL OSTEOPOROSIS. This patient's lowest T-score meets the World Health Organization's (WHO) criteria for osteoporosis at one or more sites (T-score -2.5 or below). In untreated patients, the risk of osteoporotic fracture increases approximately two-fold for each 1.0 SD decrease in T-score. Low bone density is not the only risk factor for fracture; also consider factors such as patient's age, frailty or poor health, risk of falling, risk of injury, previous osteoporotic fracture, family history of osteoporosis, cigarette smoking, low body weight, etc. Not everyone with low bone mineral density has osteoporosis; osteomalacia and other metabolic bone disorders should also be considered. Patients who have osteoporosis should be evaluated for specific diseases and conditions (secondary causes) that may cause or contribute to bone loss. The [place] [employer]ocr[employer] (AACE) and National Osteoporosis Foundation (NOF) recommend pharmacologic intervention for all postmenopausal women whose T-score is in this range. The patient should follow a healthful lifestyle (good nutrition with adequate calcium and vitamin D, and appropriate weight-bearing exercise). Follow-Up: Consider a repeat BMD and Vertebral Fracture Assessment (VFA) exam in 2 years or sooner if medically necessary, to reassess this patient's status. Reported by: AIDEN on 01/03/2025 1:22:00 PM. Reviewed, dictated and finalized at location A.
== END 2025-01-03 12:29 | disposition home or self-care (01) ==
LOC: MICIMG 12:29
PROVIDERS: PCP Student in an Organized Health Care Education/Training Program; Visit Provider Obstetrics & Gynecology
DX: M81.0 Age-related osteoporosis without current pathological fracture (principal); M85.89 Other specified disorders of bone density and structure, multiple sites
CPT/HCPCS: 77080